=== PATIENT | female | born 1935 | race Caucasian/White ===

== ENCOUNTER 2018-08-16 20:41 | Inpatient (IN) | payer MEDICARE ==
[~2018-08-16] VITALS: Ht 160 cm; Wt 84.4 kg
[2018-08-16 21:50] LABS: BASOPHILS % 0.5 % (0.0-2.0); EOSINOPHILS % 1.9 % (0.0-5.0); HEMATOCRIT. 39.5 % (36.0-48.0); HEMOGLOBIN. 13.3 g/dL (12.0-16.0); LYMPHOCYTES % 33.2 % (20.0-50.0); MEAN CORPUSCULAR HEMOGLOBIN 34.8 pg (28.0-32.0); MEAN CORPUSCULAR VOLUME 103.3 fL (81.0-99.0); MEAN PLATELET VOLUME 8.6 fl (7.4-10.4); MONOCYTES % 7.3 % (2.0-8.0); NEUTROPHILS % 57.1 % (40.0-76.0); PLATELET 164 x1000/uL (130-400); RED BLOOD CELL COUNT 3.83 mill/uL (4.2-5.4); RED CELL DISTRIBUTION WIDTH 14.5 % (11.6-14.6)
[2018-08-16 21:51] LABS: CHLORIDE 106 mEq/L (98-107)
[2018-08-16 21:56] LABS: ETHANOL BLOOD < 10 mg/dL
[2018-08-16 21:57] LABS: INR 1.1; PROTHROMBIN TIME 10.6 sec (9.1-11.1)
[2018-08-16 21:58] LABS: LDL CHOLESTEROL 104 mg/dL (5-100)
[2018-08-17 00:04] LABS: CLARITY URINE CLOUDY (CLEAR); COLOR URINE YELLOW (YELLOW); KETONES URINE NEGATIVE (NEGATIVE); LEUKOCYTE ESTERASE URINE 2+ (NEGATIVE); NITRITE URINE POSITIVE (NEGATIVE); OCCULT BLOOD URINE NEGATIVE (NEGATIVE); PH URINE 5.5 (4.5-8.0); PROTEIN URINE NEGATIVE (NEGATIVE); SPECIFIC GRAVITY URINE 1.018 (1.005-1.030)
[2018-08-17 00:32] LABS: *AMPHETAMINES SCREEN URINE NEGATIVE (NEGATIVE); *BARBITURATES SCREEN URINE NEGATIVE (NEGATIVE); *BENZODIAZEPINES SCREEN URINE NEGATIVE (NEGATIVE); *COCAINE SCREEN URINE NEGATIVE (NEGATIVE); METHADONE URINE SCREEN NEGATIVE (NEGATIVE); OPIATES URINE SCREEN NEGATIVE (NEGATIVE)
[2018-08-17 00:33] LABS: CANNABINOID URINE SCREEN NEGATIVE (NEGATIVE); PHENCYCLIDINE URINE SCREEN NEGATIVE (NEGATIVE)
[2018-08-17] MEDS ORDERED: IOHEXOL-350 100 ML BOTTLE ONE (02:51)
[2018-08-17] MEDS ORDERED: CEFTRIAXONE 1,000 MG in DEXTROSE 5% WATER 50 ML IV STA (03:20)
[2018-08-17] MEDS ORDERED: SODIUM CHLORIDE 0.9% 1,000 ML IV ONE (03:30)
[2018-08-17] MEDS ORDERED: LISI-186 PO (03:41)
[2018-08-17] MEDS ORDERED: ACET-2853 PO (03:41)
[2018-08-17] MEDS ORDERED: METO-539 PO (03:41)
[2018-08-17] MEDS ORDERED: CLOP75TA33 PO (03:41)
[2018-08-17] MEDS ORDERED: CHOL100044 PO ×2 (03:41→03:43)
[2018-08-17] MEDS ORDERED: LEVO75TA7 PO (03:41)
[2018-08-17] MEDS ORDERED: VENL150C52 PO (03:43)
[2018-08-17] MEDS ORDERED: ROSU5TAB10 PO (03:43)
[2018-08-17 04:14] VITALS: BP 142/78
[2018-08-17 08:00] VITALS: BP 159/87
[2018-08-17] MEDS: ENOXAPARIN 30MG/0.3ML SYR SUBCUT SCH (08:48)
[2018-08-17] MEDS: METOPROLOL TARTRATE 50MG TABLET PO SCH ×2 (08:48→22:04)
[2018-08-17] MEDS: VENLAFAXINE HCL 37.5MG SR CAPSULE 24HR PO SCH (08:48)
[2018-08-17] MEDS: LISINOPRIL 5MG TABLET PO SCH (08:49)
[2018-08-17] MEDS: CLOPIDOGREL 75MG TABLET PO SCH (08:49)
[2018-08-17] MEDS ORDERED: VENLAFAXINE HCL 150 MG PO SCH (09:00)
[2018-08-17] MEDS ORDERED: MEDICATION NOT ON FORMULARY EA (Metoprolol Tartrate 50 MG) PO SCH (09:00)
[2018-08-17] MEDS ORDERED: ROSUVASTATIN CALCIUM 5 MG PO SCH ×2 (09:00)
[2018-08-17] MEDS ORDERED: MEDICATION NOT ON FORMULARY EA (Lisinopril 5 MG) PO SCH (09:00)
[2018-08-17] MEDS ORDERED: LISINOPRIL 10MG TABLET PO SCH (09:00)
[2018-08-17] MEDS ORDERED: MEDICATION NOT ON FORMULARY EA (Clopidogrel Bisulfate (Clopidogrel) 75 MG) PO SCH (09:00)
[2018-08-17 12:00] VITALS: BP 143/83
[2018-08-17 16:00] VITALS: BP 123/93
[2018-08-17] MEDS: DEXT 5%/0.45% NACL 1000ML 1,000 ML IV SCH (19:02)
[2018-08-17 20:31] VITALS: BP 150/77
[2018-08-17] MEDS: ROSUVASTATIN 5 MG PO SCH (22:04)
[2018-08-17] MEDS: SULFAMETHOXAZOLE/TRIMETHOPRIM 800/160MG TABLET PO SCH (22:04)
[2018-08-18 00:41] VITALS: BP 149/84
[2018-08-18 04:00] VITALS: BP 135/68
[2018-08-18 07:25] LABS: BASOPHILS % 0.5 % (0.0-2.0); EOSINOPHILS % 2.4 % (0.0-5.0); HEMATOCRIT. 37.1 % (36.0-48.0); HEMOGLOBIN. 12.4 g/dL (12.0-16.0); LYMPHOCYTES % 38.7 % (20.0-50.0); MEAN CORPUSCULAR HEMOGLOBIN 34.9 pg (28.0-32.0); MEAN PLATELET VOLUME 8.6 fl (7.4-10.4); MONOCYTES % 9.7 % (2.0-8.0); NEUTROPHILS % 48.7 % (40.0-76.0); PLATELET 157 x1000/uL (130-400); RED BLOOD CELL COUNT 3.57 mill/uL (4.2-5.4); RED CELL DISTRIBUTION WIDTH 14.3 % (11.6-14.6)
[2018-08-18 07:54] LABS: PHOSPHORUS 2.6 mg/dL (2.5-4.9)
[2018-08-18 08:00] VITALS: BP 135/58
[2018-08-18] MEDS: LISINOPRIL 5MG TABLET PO SCH (09:00)
[2018-08-18] MEDS: METOPROLOL TARTRATE 50MG TABLET PO SCH ×2 (09:00→21:20)
[2018-08-18] MEDS: VENLAFAXINE HCL 37.5MG SR CAPSULE 24HR PO SCH (09:00)
[2018-08-18] MEDS: CLOPIDOGREL 75MG TABLET PO SCH (09:26)
[2018-08-18] MEDS: ENOXAPARIN 30MG/0.3ML SYR SUBCUT SCH (09:26)
[2018-08-18] MEDS: SULFAMETHOXAZOLE/TRIMETHOPRIM 800/160MG TABLET PO SCH ×2 (09:26→21:20)
[2018-08-18] MEDS: DEXT 5%/0.45% NACL 1000ML 1,000 ML IV SCH ×2 (09:26→21:20)
[2018-08-18] MEDS ORDERED: LEVOFLOXACIN 500MG TABLET PO SCH (11:00)
[2018-08-18 12:00] VITALS: BP 131/68
[2018-08-18 16:00] VITALS: BP 137/74
[2018-08-18] MEDS: CEPHALEXIN 250MG CAPSULE PO SCH ×2 (17:29→23:40)
[2018-08-18 19:33] LABS: VITAMIN B12 SERUM 837 pg/mL (211-911)
[2018-08-18 20:29] VITALS: BP 146/101
[2018-08-18] MEDS: ROSUVASTATIN 5 MG PO SCH (22:21)
[2018-08-19] VITALS: BP 152/92
[2018-08-19 04:00] VITALS: BP 162/76
[2018-08-19] MEDS: CEPHALEXIN 250MG CAPSULE PO SCH ×4 (06:04→23:35)
[2018-08-19 08:00] VITALS: BP 13/77
[2018-08-19] MEDS: VENLAFAXINE HCL 37.5MG SR CAPSULE 24HR PO SCH (10:52)
[2018-08-19] MEDS: SULFAMETHOXAZOLE/TRIMETHOPRIM 800/160MG TABLET PO SCH ×2 (10:53→20:48)
[2018-08-19] MEDS: ENOXAPARIN 30MG/0.3ML SYR SUBCUT SCH (10:54)
[2018-08-19] MEDS: METOPROLOL TARTRATE 50MG TABLET PO SCH ×2 (10:54→20:48)
[2018-08-19] MEDS: CLOPIDOGREL 75MG TABLET PO SCH (10:54)
[2018-08-19 12:00] VITALS: BP 123/69
[2018-08-19] MEDS: LISINOPRIL 5MG TABLET PO SCH ×3 (14:12→14:32)
[2018-08-19 16:00] VITALS: BP 128/78
[2018-08-19 16:56] LABS: BASOPHILS % 0.4 % (0.0-2.0); EOSINOPHILS % 2.6 % (0.0-5.0); HEMATOCRIT. 38.1 % (36.0-48.0); LYMPHOCYTES % 25.5 % (20.0-50.0); MEAN CORPUSCULAR HEMOGLOBIN 35.2 pg (28.0-32.0); MEAN CORPUSCULAR VOLUME 103.2 fL (81.0-99.0); MEAN PLATELET VOLUME 8.9 fl (7.4-10.4); MONOCYTES % 9.1 % (2.0-8.0); NEUTROPHILS % 62.4 % (40.0-76.0); PLATELET 167 x1000/uL (130-400); RED BLOOD CELL COUNT 3.69 mill/uL (4.2-5.4); RED CELL DISTRIBUTION WIDTH 14.4 % (11.6-14.6)
[2018-08-19 20:00] VITALS: BP 140/103
[2018-08-19] MEDS: ROSUVASTATIN 5 MG PO SCH (20:49)
[2018-08-20] VITALS (7 sets, daily range): BP systolic 114–168; BP diastolic 77–91
[2018-08-20] MEDS: CEPHALEXIN 250MG CAPSULE PO SCH ×4 (06:25→22:15)
[2018-08-20] MEDS: SULFAMETHOXAZOLE/TRIMETHOPRIM 800/160MG TABLET PO SCH ×2 (09:42→20:41)
[2018-08-20] MEDS: CLOPIDOGREL 75MG TABLET PO SCH (09:42)
[2018-08-20] MEDS: VENLAFAXINE HCL 37.5MG SR CAPSULE 24HR PO SCH (09:42)
[2018-08-20] MEDS: METOPROLOL TARTRATE 50MG TABLET PO SCH ×2 (09:43→20:41)
[2018-08-20] MEDS: ENOXAPARIN 30MG/0.3ML SYR SUBCUT SCH (09:44)
[2018-08-20] MEDS: ROSUVASTATIN 5 MG PO SCH (20:41)
[2018-08-21 04:00] VITALS: BP 153/70
[2018-08-21] MEDS: CEPHALEXIN 250MG CAPSULE PO SCH ×2 (06:14→12:15)
[2018-08-21 07:53] VITALS: BP 143/83
[2018-08-21] MEDS: METOPROLOL TARTRATE 50MG TABLET PO SCH (08:25)
[2018-08-21] MEDS: LISINOPRIL 5MG TABLET PO SCH (08:25)
[2018-08-21] MEDS: VENLAFAXINE HCL 37.5MG SR CAPSULE 24HR PO SCH (08:25)
[2018-08-21] MEDS: CLOPIDOGREL 75MG TABLET PO SCH (08:25)
[2018-08-21] MEDS: SULFAMETHOXAZOLE/TRIMETHOPRIM 800/160MG TABLET PO SCH (08:26)
[2018-08-21] MEDS: ENOXAPARIN 30MG/0.3ML SYR SUBCUT SCH ×2 (08:26→08:36)
[2018-08-21] MEDS ORDERED: NA PHOS,M-B/NA PHOS,DI-BA ENEMA 118ML PR SCH (11:45)
[2018-08-21 11:57] VITALS: BP 137/79
[2018-08-21] MEDS: DOCUSATE SODIUM 100MG CAPSULE PO SCH ×2 (12:15→17:00)
[2018-08-21 15:56] VITALS: BP 138/84
[2018-08-21 16:34] VITALS: BP 138/84
== END 2018-08-21 17:35 | DRG 65 ==
LOC: ER 20:47 → 6WST 23:04 → EDBEDREQSVC 23:23 → EDBEDREQTM 23:23 → EDBEDREQ 23:23 → ENRESERV 08-17 01:52 → 6WST 08-17 21:00
PROVIDERS: ADMIT Internal Medicine Pulmonary Disease; ATTEND Internal Medicine Pulmonary Disease
DX: I63.9 Cerebral infarction, unspecified (principal); G95.20 Unspecified cord compression; F03.90 Unspecified dementia, unspecified severity, without behavioral disturbance, psychotic disturbance, mood disturbance, and anxiety; E78.5 Hyperlipidemia, unspecified; I10 Essential (primary) hypertension; B96.20 Unspecified Escherichia coli [E. coli] as the cause of diseases classified elsewhere; D53.9 Nutritional anemia, unspecified; E66.01 Morbid (severe) obesity due to excess calories; I25.10 Atherosclerotic heart disease of native coronary artery without angina pectoris; M47.816 Spondylosis without myelopathy or radiculopathy, lumbar region; M47.812 Spondylosis without myelopathy or radiculopathy, cervical region; K59.00 Constipation, unspecified; M41.9 Scoliosis, unspecified; M48.02 Spinal stenosis, cervical region; M48.061 Spinal stenosis, lumbar region without neurogenic claudication; Z16.11 Resistance to penicillins; Z86.73 Personal history of transient ischemic attack (TIA), and cerebral infarction without residual deficits; I25.2 Old myocardial infarction; Z85.3 Personal history of malignant neoplasm of breast; Z68.32 Body mass index [BMI] 32.0-32.9, adult; Z87.440 Personal history of urinary (tract) infections; Z90.12 Acquired absence of left breast and nipple; Z95.5 Presence of coronary angioplasty implant and graft; Z87.81 Personal history of (healed) traumatic fracture; Z79.02 Long term (current) use of antithrombotics/antiplatelets; Z79.899 Other long term (current) drug therapy; Z88.1 Allergy status to other antibiotic agents; Z88.6 Allergy status to analgesic agent
CPT/HCPCS: 36415; 70450; 70496; 70498; 70551; 71045; 72141; 72148; 80048; 80053; 80305; 81003; 82607; 83721; 83735; 84100; 84484; 85025; 85610; 87077; 87086; 87186; 93005; 96365; 96376; 97162; 97530; 99285; C1893; G0482; J1650; J3490; Q9967